=== PATIENT | female | born 1970 | race Caucasian/White ===

== ENCOUNTER 2018-04-10 16:20 | Inpatient (IN) | payer OTHER ==
[2018-04-10 17:05] LABS: ADD MAN DIFF? NO
[2018-04-10 17:09] LABS: BASOPHILS % 0.2 % (0.0-2.0); EOSINOPHILS % 0.2 % (0.0-7.0); HEMATOCRIT 35.1 % (37.0-47.0); HEMOGLOBIN 11.6 g/dl (12.0-16.0); LYMPHOCYTES # 1.3 10^3/ul (0.8-2.9); LYMPHOCYTES % 14.2 % (15.0-51.0); MEAN CORPUSCULAR HEMOGLOBIN 30.3 pg (29.0-33.0); MEAN CORPUSCULAR VOLUME 91.6 fl (82.0-101.0); MEAN PLATELET VOLUME 9.5 fl (7.4-10.4); MONOCYTE # 0.5 10^3/ul (0.3-0.9); MONOCYTES % 5.5 % (0.0-11.0); NEUTROPHIL # 7.2 10^3/ul (1.6-7.5); NEUTROPHILS % 79.1 % (39.0-77.0); PLATELET COUNT 279 10^3/UL (140-415); RED BLOOD COUNT 3.83 10^6/ul (4.20-5.40); RED CELL DISTRIBUTION WIDTH 12.9 % (11.5-14.5)
[2018-04-10 17:09] LABS: WHITE BLOOD COUNT 9.1 10^3/ul (4.8-10.8)
[2018-04-10] MEDS: IBUPROFEN 600 MG TAB PO (17:10)
[2018-04-10] MEDS: ACETAMINOPHEN 325 MG TAB PO (17:10)
[2018-04-10 17:22] LABS: ADD UMIC YES; UR ASCORBIC ACID NEGATIVE (NEGATIVE); UR BACTERIA MANY /HPF (NONE SEEN); UR BILIRUBIN (Dip) NEGATIVE (NEGATIVE); UR BLOOD (Dip) 2+ mg/dL (NEGATIVE); UR BUDDING YEAST FEW /HPF (NONE SEEN); UR CLARITY CLOUDY (CLEAR); UR COLOR YELLOW (YELLOW); UR GLUCOSE (Dip) 3+ mg/dL (NEGATIVE); UR KETONES (Dip) 1+ mg/dL (NEGATIVE); UR LEUKOCYTE ESTERASE (Dip) 2+ Leu/ul (NEGATIVE); UR MUCUS FEW /HPF (NONE SEEN); UR NITRITE (Dip) NEGATIVE (NEGATIVE); UR RBC 27 /HPF (0-5); UR SPECIFIC GRAVITY (Dip) 1.018 (1.003-1.030); UR SQUAMOUS EPITHELIAL CELL MODERATE /HPF (FEW); UR TOTAL PROTEIN (Dip) 2+ mg/dl (NEGATIVE); UR UROBILINOGEN (Dip) 2+ mg/dL (NEGATIVE); UR WBC 150 /HPF (0-5)
[2018-04-10 17:26] LABS: INR 0.94; PROTIME 12.7 Sec (11.9-14.9)
[2018-04-10 17:27] LABS: PARTIAL THROMBOPLASTIN TIME 30.2 Sec (25.0-35.0)
[2018-04-10 17:29] LABS: LACTIC ACID 1.3 mmol/L (0.5-2.0); MAGNESIUM 1.6 mg/dl (1.7-2.5)
[2018-04-10] MEDS: SODIUM CHLORIDE 0.9% 1L BAG IV* (17:29)
[2018-04-10] MEDS: PIPER-TAZO 3.375 GM IV (PMX) 100 ML IVPB (17:38)
[2018-04-10 17:40] LABS: TROPONIN-I < 0.012 ng/ml (0.000-0.120)
[2018-04-10 18:15] LABS: ALANINE AMINOTRANSFERASE 32 IU/L (13-69); ALBUMIN 3.6 g/dl (3.3-4.9); ALBUMIN/GLOBULIN RATIO 0.75; ALKALINE PHOSPHATASE 221 IU/L (42-121); ANION GAP 14 (8-16); ASPARTATE AMINO TRANSFERASE 21 IU/L (15-46); BILIRUBIN,INDIRECT 0.4 mg/dl (0-1.1); BILIRUBIN,TOTAL 0.4 mg/dl (0.2-1.3); BLOOD UREA NITROGEN 9 mg/dl (7-20); CALCIUM 10.5 mg/dl (8.4-10.2); CARBON DIOXIDE 26 mmol/L (21-31); CHLORIDE 97 mmol/L (97-110); CREATININE 0.85 mg/dl (0.44-1.00); GLUCOSE 254 mg/dl (70-220); SODIUM 133 mmol/L (135-144); TOTAL PROTEIN 8.4 g/dl (6.1-8.1)
[2018-04-10] MEDS ORDERED: morphine 2 MG INJ IV (19:00)
[2018-04-10] MEDS ORDERED: DOCUSATE SODIUM 100 MG CAP PO (19:00)
[2018-04-10] MEDS ORDERED: HYDROCODONE/APAP (5/325) TAB PO (19:00)
[2018-04-10] MEDS ORDERED: NACL 0.9% 3 ML SYG IV (19:00)
[2018-04-10] MEDS ORDERED: MAGNESIUM HYDROXIDE 30ML CUP PO (19:00)
[2018-04-10 19:15] LABS: LACTIC ACID 0.9 mmol/L (0.5-2.0)
[2018-04-10] MEDS: MAGNESIUM SULFATE 3 GM in DEXTROSE 5% 100 ML IVPB (20:16)
[2018-04-10] MEDS: CEFTRIAXONE 1 GM/50 ML (PMX) 50 ML IVPB (20:44)
[2018-04-10] MEDS: MAGNESIUM OXIDE 400 MG TAB PO (20:51)
[2018-04-10] MEDS: SOD CHLORIDE 0.9% 1,000 ML IV (20:51)
[2018-04-11] MEDS: ACETAMINOPHEN 325 MG TAB PO ×2 (00:08→23:56)
[2018-04-11] MEDS ORDERED: DEXTROSE 50% 50 ML SYRINGE IV ×2 (02:00)
[2018-04-11] MEDS: ACCU-CHEK XX (02:00)
[2018-04-11] MEDS ORDERED: GLUCOSE GEL 15 GRAM TUBE BUCCAL (02:00)
[2018-04-11] MEDS ORDERED: GLUCAGON 1 MG INJ IM (02:00)
[2018-04-11] MEDS ORDERED: GLUCOSE GEL 15 GRAM TUBE PO ×2 (02:00)
[2018-04-11] MEDS: SOD CHLORIDE 0.9% 1,000 ML IV ×3 (05:00→17:00)
[2018-04-11 05:58] LABS: ADD MAN DIFF? NO
[2018-04-11 06:07] LABS: WHITE BLOOD COUNT 7.5 10^3/ul (4.8-10.8)
[2018-04-11 06:07] LABS: BASOPHILS % 0.3 % (0.0-2.0); EOSINOPHILS # 0.1 10^3/ul (0.0-0.5); EOSINOPHILS % 1.5 % (0.0-7.0); HEMATOCRIT 31.4 % (37.0-47.0); HEMOGLOBIN 10.1 g/dl (12.0-16.0); LYMPHOCYTES # 1.3 10^3/ul (0.8-2.9); LYMPHOCYTES % 17.9 % (15.0-51.0); MEAN CORPUSCULAR HEMOGLOBIN 30.6 pg (29.0-33.0); MEAN CORPUSCULAR HGB CONC 32.2 g/dl (32.0-37.0); MEAN CORPUSCULAR VOLUME 95.2 fl (82.0-101.0); MONOCYTE # 0.5 10^3/ul (0.3-0.9); MONOCYTES % 6.2 % (0.0-11.0); NEUTROPHIL # 5.5 10^3/ul (1.6-7.5); NEUTROPHILS % 73.4 % (39.0-77.0); PLATELET COUNT 257 10^3/UL (140-415); RED CELL DISTRIBUTION WIDTH 13.3 % (11.5-14.5)
[2018-04-11 06:46] LABS: ANION GAP 10 (8-16); BLOOD UREA NITROGEN 7 mg/dl (7-20); CARBON DIOXIDE 26 mmol/L (21-31); CHLORIDE 107 mmol/L (97-110); CREATININE 0.71 mg/dl (0.44-1.00); GLUCOSE 192 mg/dl (70-220); MAGNESIUM 2.2 mg/dl (1.7-2.5); PHOSPHORUS 2.1 mg/dl (2.5-4.9); POTASSIUM 3.7 mmol/L (3.5-5.1); SODIUM 139 mmol/L (135-144)
[2018-04-11] MEDS: SOD CHLORIDE 0.9% 250 ML IV (07:00)
[2018-04-11] MEDS: INSULIN ASPART [NOVOLOG] 3 ML PEN SC ×4 (08:36→21:05)
[2018-04-11] MEDS: TAMSULOSIN (SR) 0.4 MG CAP PO (08:52)
[2018-04-11] MEDS: PIPER-TAZO 3.375 GM IV (PMX) 100 ML IVPB ×3 (12:25→23:37)
[2018-04-11] MEDS ORDERED: IOHEXOL 300MG/ML 30 ML BTL (16:50)
[2018-04-11] MEDS ORDERED: PROPOFOL 20 ML (17:46)
[2018-04-11] MEDS ORDERED: LIDOCAINE 2% (SDV) 5 ML INJ (17:46)
[2018-04-11] MEDS ORDERED: FENTAnyl 50 MCG/ML VIAL (17:46)
[2018-04-11] MEDS ORDERED: MIDAZOLAM 1 MG/ML 2 ML INJ (17:46)
[2018-04-11] MEDS ORDERED: FAMOTIDINE 20 MG INJ (17:56)
[2018-04-11] MEDS ORDERED: ONDANSETRON 4 MG INJ (17:56)
[2018-04-11] MEDS ORDERED: METOCLOPRAMIDE 10 MG INJ (17:56)
[2018-04-11] MEDS ORDERED: PROCHLORPERAZINE 10 MG INJ IV (18:00)
[2018-04-11] MEDS ORDERED: FENTAnyl 50 MCG/ML VIAL IV ×3 (18:00)
[2018-04-11] MEDS ORDERED: DIPHENHYDRAMINE 50 MG INJ IV (18:00)
[2018-04-11] MEDS ORDERED: ONDANSETRON 4 MG INJ IV (18:00)
[2018-04-11] MEDS ORDERED: MEPERIDINE 25 MG INJ IV (18:00)
[2018-04-11] MEDS ORDERED: HYDROmorphONE 1 MG/5 ML IV SYRINGE IV ×3 (18:00)
[2018-04-11] MEDS ORDERED: CEFAZOLIN 1 GM INJ (18:01)
[2018-04-11] MEDS ORDERED: PHENYLephrine (100 MCG/ML) 5ML SYG (18:06)
[2018-04-11] MEDS ORDERED: HYDROmorphONE 2 MG/ML SYG (18:21)
[2018-04-11] MEDS ORDERED: EPHEDrine SULFATE 50 MG/5 ML SYG (18:22)
[2018-04-11] MEDS: ONDANSETRON 4 MG INJ IV (20:56)
[2018-04-11] MEDS: ZOLPIDEM 5 MG TAB PO (21:05)
[2018-04-12] MEDS: SOD CHLORIDE 0.9% 1,000 ML IV ×2 (01:00→11:08)
[2018-04-12] MEDS: ACCU-CHEK XX (01:52)
[2018-04-12] MEDS: PIPER-TAZO 3.375 GM IV (PMX) 100 ML IVPB ×4 (05:29→23:42)
[2018-04-12 05:50] LABS: ADD MAN DIFF? NO
[2018-04-12 05:53] LABS: BASOPHILS % 0.2 % (0.0-2.0); EOSINOPHILS % 0.7 % (0.0-7.0); HEMATOCRIT 28.6 % (37.0-47.0); HEMOGLOBIN 9.1 g/dl (12.0-16.0); LYMPHOCYTES # 1.4 10^3/ul (0.8-2.9); LYMPHOCYTES % 23.4 % (15.0-51.0); MEAN CORPUSCULAR HEMOGLOBIN 30.3 pg (29.0-33.0); MEAN CORPUSCULAR HGB CONC 31.8 g/dl (32.0-37.0); MEAN CORPUSCULAR VOLUME 95.3 fl (82.0-101.0); MEAN PLATELET VOLUME 9.7 fl (7.4-10.4); MONOCYTE # 0.5 10^3/ul (0.3-0.9); MONOCYTES % 8.5 % (0.0-11.0); NEUTROPHIL # 3.8 10^3/ul (1.6-7.5); NEUTROPHILS % 66.5 % (39.0-77.0); PLATELET COUNT 263 10^3/UL (140-415); RED CELL DISTRIBUTION WIDTH 13.4 % (11.5-14.5)
[2018-04-12 05:53] LABS: WHITE BLOOD COUNT 5.8 10^3/ul (4.8-10.8)
[2018-04-12] MEDS: ACETAMINOPHEN 325 MG TAB PO ×2 (06:28→17:37)
[2018-04-12 06:29] LABS: ANION GAP 10 (8-16); BLOOD UREA NITROGEN 6 mg/dl (7-20); CALCIUM 8.8 mg/dl (8.4-10.2); CARBON DIOXIDE 24 mmol/L (21-31); CHLORIDE 106 mmol/L (97-110); GLUCOSE 189 mg/dl (70-220); PHOSPHORUS 3.5 mg/dl (2.5-4.9); POTASSIUM 4.3 mmol/L (3.5-5.1); SODIUM 136 mmol/L (135-144)
[2018-04-12] MEDS: INSULIN ASPART [NOVOLOG] 3 ML PEN SC ×4 (08:27→21:44)
[2018-04-12] MEDS: TAMSULOSIN (SR) 0.4 MG CAP PO (08:35)
[2018-04-12] MEDS: LINAGLIPTIN 5 MG TABLET PO (16:26)
[2018-04-12] MEDS: metFORMIN 500 MG TAB PO (17:26)
[2018-04-12] MEDS: ZOLPIDEM 5 MG TAB PO (21:39)
[2018-04-12] MEDS: IBUPROFEN 400 MG TAB PO (21:39)
[2018-04-13] MEDS: ACCU-CHEK XX (02:00)
[2018-04-13] MEDS: PIPER-TAZO 3.375 GM IV (PMX) 100 ML IVPB (05:57)
[2018-04-13] MEDS: TAMSULOSIN (SR) 0.4 MG CAP PO (08:21)
[2018-04-13] MEDS: LINAGLIPTIN 5 MG TABLET PO (08:21)
[2018-04-13] MEDS: metFORMIN 500 MG TAB PO (08:21)
[2018-04-13] MEDS: INSULIN ASPART [NOVOLOG] 3 ML PEN SC ×2 (08:48→12:52)
[2018-04-13 08:50] LABS: ADD MAN DIFF? NO
[2018-04-13 08:55] LABS: BASOPHILS % 0.3 % (0.0-2.0); EOSINOPHILS # 0.1 10^3/ul (0.0-0.5); EOSINOPHILS % 2.2 % (0.0-7.0); HEMOGLOBIN 9.6 g/dl (12.0-16.0); LYMPHOCYTES # 1.5 10^3/ul (0.8-2.9); LYMPHOCYTES % 24.8 % (15.0-51.0); MEAN CORPUSCULAR HEMOGLOBIN 30.4 pg (29.0-33.0); MEAN CORPUSCULAR VOLUME 94.9 fl (82.0-101.0); MEAN PLATELET VOLUME 9.7 fl (7.4-10.4); MONOCYTE # 0.4 10^3/ul (0.3-0.9); MONOCYTES % 6.1 % (0.0-11.0); NEUTROPHIL # 3.9 10^3/ul (1.6-7.5); NEUTROPHILS % 65.7 % (39.0-77.0); PLATELET COUNT 304 10^3/UL (140-415); RED BLOOD COUNT 3.16 10^6/ul (4.20-5.40); RED CELL DISTRIBUTION WIDTH 13.3 % (11.5-14.5)
[2018-04-13 08:55] LABS: WHITE BLOOD COUNT 5.9 10^3/ul (4.8-10.8)
[2018-04-13 09:16] LABS: ANION GAP 10 (8-16); BLOOD UREA NITROGEN 7 mg/dl (7-20); CALCIUM 9.8 mg/dl (8.4-10.2); CARBON DIOXIDE 28 mmol/L (21-31); CHLORIDE 105 mmol/L (97-110); GLUCOSE 170 mg/dl (70-220); MAGNESIUM 1.7 mg/dl (1.7-2.5); PHOSPHORUS 2.9 mg/dl (2.5-4.9); POTASSIUM 3.7 mmol/L (3.5-5.1); SODIUM 139 mmol/L (135-144)
[2018-04-13] MEDS: LEVOFLOXACIN 750 MG TABLET PO (12:00)
[2018-04-13] MEDS ORDERED: metFORMIN 500 MG TAB PO (18:00)
== END 2018-04-13 15:45 | disposition home or self-care (01) | DRG 854 ==
LOC: E/R 16:20 → 2NE 19:00
PROC: 0TC78ZZ Extirpation of Matter from Left Ureter, Via Natural or Artificial Opening Endoscopic (ICD-10-PCS; principal; 2018-04-11 17:30)
PROC: 0T778DZ Dilation of Left Ureter with Intraluminal Device, Via Natural or Artificial Opening Endoscopic (ICD-10-PCS; 2018-04-11 17:30)
DX: A41.9 Sepsis, unspecified organism (principal); N13.6 Pyonephrosis; E87.1 Hypo-osmolality and hyponatremia; E11.65 Type 2 diabetes mellitus with hyperglycemia; E86.0 Dehydration; J45.909 Unspecified asthma, uncomplicated; Z90.710 Acquired absence of both cervix and uterus; E78.5 Hyperlipidemia, unspecified; E66.01 Morbid (severe) obesity due to excess calories; Z91.19 Patient's noncompliance with other medical treatment and regimen; Z68.31 Body mass index [BMI] 31.0-31.9, adult
CPT/HCPCS: 36415; 71045; 74018; 74176; 74430; 80048; 80053; 81001; 82962; 83036; 83605; 83735; 84100; 84484; 84703; 85025; 85610; 85730; 87040; 87086; 88300; 93005; 96374; 99285-25